=== PATIENT | male | born 1985 | race Caucasian/White ===

== ENCOUNTER 2020-05-28 07:03 | Emergency (ER) | payer SELFPAY ==
[~2020-05-28] VITALS: Ht 180.3 cm; Wt 100.7 kg
[2020-05-28 07:17] VITALS: BP_SYST 166
--- NOTE | 2020-05-28 07:26 | NUR ---
Patient to ER bed 3 to gown for evaluation. Side rails up. Report given to NONA Green.
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
--- NOTE | 2020-05-28 07:37 | NUR ---
ER Dr. Galicia at bedside examining patient.
--- NOTE | 2020-05-28 07:40 | NUR ---
ER Dr. Galicia at bedside examining patient with BS ultrasound .
--- NOTE | 2020-05-28 08:15 | NUR ---
Patient given written and verbal discharge instructions and verbalizes understanding. ER MD discussed with patient the results and treatment provided. Patient in stable condition. ID arm band removed. Rx of [place] given. Patient educated on pain management and to follow up with PMD. Pain Scale 8/10 will medicate At home. Opportunity for questions provided and answered. Medication side effect fact sheet provided.
== END 2020-05-28 08:15 | disposition home or self-care (01) ==
LOC: SED 07:03
DX: S20.212A Contusion of left front wall of thorax, initial encounter (principal); F15.90 Other stimulant use, unspecified, uncomplicated; V18.0XXA Pedal cycle driver injured in noncollision transport accident in nontraffic accident, initial encounter; Y93.55 Activity, bike riding; Y92.89 Other specified places as the place of occurrence of the external cause; Y99.8 Other external cause status
CPT/HCPCS: 99284